=== PATIENT | female | born 1995 | race Caucasian/White ===

== ENCOUNTER → 2024-01-25 06:23 | Day surgery (SDC) | payer OTHER, SELFPAY | LOC: GI 06:23 | PROVIDERS: ATTENDING PHYSICIAN Internal Medicine Gastroenterology; FAMILY PHYSICIAN Internal Medicine | DX: K29.70 Gastritis, unspecified, without bleeding (principal); K22.89 Other specified disease of esophagus; K44.9 Diaphragmatic hernia without obstruction or gangrene; R63.0 Anorexia; R19.7 Diarrhea, unspecified | CPT/HCPCS: 43239; 88305; 88342 ==

== ENCOUNTER → 2024-04-03 07:34 | Outpatient (REF) | payer OTHER, SELFPAY | LOC: EMG 07:34 | PROVIDERS: ATTENDING PHYSICIAN Orthopaedic Surgery Hand Surgery; FAMILY PHYSICIAN Nurse Practitioner Family | DX: M79.642 Pain in left hand (principal); M79.641 Pain in right hand; R20.0 Anesthesia of skin | CPT/HCPCS: 95886; 95911 ==

== ENCOUNTER 2025-03-17 14:14 | Emergency (ER) | payer OTHER, SELFPAY ==
[2025-03-17 14:25] VITALS: BP 108/77
--- NOTE | 2025-03-17 14:54 | ED.GENMED ---
History of Present Illness
General
Chief Complaint: Overdose Intentional
Source: patient and ambulance crew
Time Seen by Provider: 03/17/25 14:26
History of Present Illness
History of Present Illness:
29-year-old female presents to the emergency room via ambulance from the police station. Patient went to the police station requesting help because she took 'a bunch' of BuSpar pills. The tablets are 10 mg. Patient denies this being a suicide
attempt. She states she took a because she was just very anxious. She took her typical dose of 3 (which is not an accurate description of her daily dose. She supposed take 1 3 times a day rather than 3 at 1 time) and it was not helping her so she
decided to take more. Upon my initial evaluation the patient states she took only 3 extra pills for total of '6 or 7'. However I counted the pills from her bottle. The bottle was filled in March 11. This would mean there should be 69 pills
remaining in the bottle. However there are 53 tablets remaining suggesting that the patient did take about 26 tablets today. Patient denies any coingestions. Patient now adamantly denies this being a suicide attempt. She is very frustrated that
she stuck here in the emergency room and wants to be discharged promptly.
Past History
Past History
ED Past Medical History: Psychiatric (A/D, ADHD on Lexapro and Adderall)
ED Past Surgical History: None
Social History
Tobacco: Non-smoker
Personal: Single
Living: with family
Employment: Student
Phy Exam
Physical Exam
Physical Exam:
General: Awake, Alert, Oriented X3. No acute distress.
Vitals: unremarkable
Head: Atraumatic
Eyes: Pupils equal, EOMI
Throat: Airway intact, no exudates
Neck: Trachea midline
Lungs: Clear and equal b/l
Heart: Regular rate, no murmurs
Neuro: Nonfocal
Skin: Warm, dry, no rash
Extremities: pulses equal b/l, no edema
Course
Orders/Labs/Results
Orders:
Orders
03/17/25 14:53
Electrocardiogram (*1) Urgent
Reason for Study: QTc Monitoring
EKG- Treatment ONCE
03/17/25 14:54
Test Result ONCE
03/17/25 16:12
Crisis Consult Urgent
Reason for Consult: overdose
03/17/25 17:48
Acetaminophen Urgent
Basic Metabolic Panel Urgent
Complete Blood Count/With Diff Urgent
HCG, Serum Qualitative Screen Urgent
Salicylate Urgent
Abnormal Lab Results
03/17/25
17:48
Chloride 110 H mmol/L
(98-107)
Glucose 101 H mg/dl
(70-99)
Salicylates < 1.0 L mg/dl
(2.0-20.0)
Acetaminophen < 10 L ug/ml
(10-30)
03/17/25 17:48
03/17/25 17:48
Vital Signs
Initial and Last Documented VS:
Initial Vital Signs
Temp Pulse Resp BP Pulse Ox
97.7 F 75 22 108/77 99
03/17/25 14:25 03/17/25 14:25 03/17/25 14:25 03/17/25 14:25 03/17/25 14:25
Last Documented Vital Signs
Temp Pulse Resp BP Pulse Ox
98.4 F 69 18 125/78 96
03/18/25 10:04 03/18/25 10:04 03/18/25 10:04 03/18/25 10:04 03/18/25 10:04
*Pulse Oximetry
SaO2: 99
Oxygen Mode of Delivery: Room air
Patient hypoxic: no
*Critical Care Note
Total Time (30-74mins, 75-104mins- exclusive of procedures): Not Applicable
ED Attending Note
-
Portions of this chart may have been created with voice recognition software.� Occasional wrong word or��sound alike� substitutions may have occurred due to the inherent limitations of voice recognition software.
Discharge Plan
Departure
Patient Disposition: [facility]
Patient Status:: 302
Discharge Problem:
Intentional overdose of buspirone
Prescriptions:
No Action
dextroamphetamine-amphetamine 10 MG tablet
10 mg PO DAILY
Patient Comments:
usually takes 5mg
escitalopram oxalate 10 MG tablet
10 mg PO DAILY
dicyclomine 10 mg capsule
10 mg PO BID Qty: 10 0RF
Referrals:
UNKNOWN,NO INTERVIEW [Family Provider]
Interventions
Interventions:
*Risk Screen - Suicide Last Done: 03/17/25 14:25
*General Assessment Last Done: 03/17/25 14:25
*Neglect/Abuse Screening Last Done: 03/17/25 14:25
*ED- Fall Risk Assessment Last Done: 03/17/25 14:25
*ED COVID-19 Vaccine History Last Done: 03/17/25 14:25
*Nursing Disposition Last Done: 03/18/25 10:32
ED- Cardiac Assessment Last Done: 03/17/25 15:16
ED- Neurological Assessment Last Done: 03/17/25 15:16
ED-Psychological Assessment Last Done: 03/17/25 15:16
ED- Pulmonary Assessment Last Done: 03/17/25 15:16
Discharge Date and Time
Discharge Date/Time: 03/18/25 10:49
Print Language: AUSTRALIAN
[2025-03-17 17:57] LABS: Hematocrit 40.1 % (37.0-47.0); Hemoglobin 13.6 g/dL (12.0-16.0); Mean Corp Hgb Conc. 33.9 g/dL (33.0-37.0); Mean Corpuscular Volume 87.7 fL (81.0-99.0); Nucleated Red Blood Cells % 0 %; Platelet Count 268 10^3/uL (130-400); Red Cell Dist. Width 12.4 % (11.5-14.5)
[2025-03-17 18:06] LABS: HCG, Serum Qualitative Screen Negative
[2025-03-17 18:21] LABS: Acetaminophen < 10 ug/ml (10-30); Blood Urea Nitrogen 7 mg/dl (7-17); Calcium 9.9 mg/dl (8.4-10.2); Carbon Dioxide 25 mmol/L (22-30); Chloride 110 mmol/L (98-107); Glucose 101 mg/dl (70-99); Potassium 4.1 mmol/L (3.5-5.1); Salicylate < 1.0 mg/dl (2.0-20.0); Sodium 140 mmol/L (135-145); eGFR > 60.00
[2025-03-17 19:43] VITALS: BP 120/71
[2025-03-18 10:04] VITALS: BP 125/78
== END 2025-03-18 10:49 ==
LOC: EMR 14:14
PROVIDERS: EMERGENCY PHYSICIAN Emergency Medicine
DX: T43.592A Poisoning by other antipsychotics and neuroleptics, intentional self-harm, initial encounter (principal); Y92.9 Unspecified place or not applicable; F90.9 Attention-deficit hyperactivity disorder, unspecified type; F41.8 Other specified anxiety disorders; Z88.1 Allergy status to other antibiotic agents; Z88.8 Allergy status to other drugs, medicaments and biological substances
CPT/HCPCS: 99283; 80048; 80143; 80179; 84703; 85025; 93005

== ENCOUNTER 2025-05-03 20:28 | Emergency (ER) | payer OTHER, SELFPAY ==
[2025-05-03 20:31] VITALS: BP 159/89
[2025-05-03 20:46] LABS: Urine Character Clear (Clear)
[2025-05-03 20:47] LABS: HCG, Urine Qualitative Screen Negative
[2025-05-03 20:55] LABS: Urine Red Blood Cell None Seen /HPF (0-2); Urine White Cell None Seen /HPF (0-5)
[2025-05-03 22:00] VITALS: BMI 20.3
[2025-05-03 22:05] VITALS: BP 129/83
--- NOTE | 2025-05-03 22:53 | ED.GENMED ---
History of Present Illness
General
Chief Complaint: Back Pain
Source: patient
Exam Limitations: none
Time Seen by Provider: 05/03/25 22:37
History of Present Illness
History of Present Illness:
See MDM
Past History
Past History
ED Past Medical History: Psychiatric (A/D, ADHD on Lexapro and Adderall)
ED Past Surgical History: None
Social History
Tobacco: Non-smoker
Personal: Single
Living: with family
Employment: Student
Phy Exam
Physical Exam
Physical Exam:
See MDM
Course
Orders/Labs/Results
Orders:
Orders
05/03/25 20:35
Test Result ONCE
05/03/25 20:39
HCG, Urine Qualitative Screen Urgent
Date Specimen was Collected: 05/03/25
Time Specimen was Collected: 20:35
Urinalysis Reflex To Culture Urgent
Date Specimen was Collected: 05/03/25
Time Specimen was Collected: 20:35
Urine Microscopic Reflex Cult Urgent
05/03/25 22:51
Cyclobenzaprine HCl [Flexeril] 10 mg PO NOW STA
Lumbar Spine, 2 or 3 View [CR Lumbar Spine 2 Or 3 Views] Urgent
Comment:
Reason For Exam: low back pain radiating to R leg
Abnormal Lab Results
05/03/25
20:39
Urine Albumin (Reflex) 1+ A
(Neg - Trace)
Vital Signs
Initial and Last Documented VS:
Initial Vital Signs
Temp Pulse Resp BP Pulse Ox
98.2 F 87 16 159/89 98
05/03/25 20:31 05/03/25 20:31 05/03/25 20:31 05/03/25 20:31 05/03/25 20:31
Last Documented Vital Signs
Temp Pulse Resp BP Pulse Ox
98 F 75 18 129/83 100
05/03/25 22:05 05/03/25 22:05 05/03/25 22:05 05/03/25 22:05 05/03/25 22:55
MDM/Problems Addressed
Differential Diagnosis Includes:
Note:
CHIEF COMPLAINT(S)
Severe lower back pain radiating to hips, thighs, and calves, accompanied by burning sensation and bladder issues.
HISTORY OF PRESENT ILLNESS
The patient is a 30-year-old female presenting with lower back pain that began approximately four months ago. The pain initially started in the lower back and gradually extended to the hips, thighs, and calves, with a burning sensation, particularly
increasing in the calves. The patient reports associated bladder issues, characterized by a sense of urgency and burning upon urination, without typical symptoms of a urinary tract infection. .
The patient underwent a cystoscopy and was scheduled for a bladder ultrasound; however, was disrupted by additional back-related events. Last week, the leg weakness increased, affecting the ability to bear weight on the legs, particularly the
calves. Of note, patient seen ambulating without difficulty. The pain worsens with walking and is positional, affecting both legs but predominantly the right one. The pain extends from the back to the front of the body. She reported the pain
radiating down from the lower back, and she described flare-ups depending on her position.
No recent trauma or fever was reported, and the patient denies significant recent physical activity such as heavy lifting.
Given her history and exam, will obtain lumbar x-ray and will start Flexeril. We did discuss possible outpatient MRI if symptoms persist.
PAST MEDICAL AND SURGICAL HISTORY
Discussion on previous interventions included a cystoscopy to evaluate bladder issues, and the patient was scheduled for a bladder ultrasound.
PHYSICAL EXAM
General: Alert, no acute distress.
Skin: Warm, dry.
Head: Normocephalic, atraumatic
Neck: Appears supple, trachea midline.
Eyes, Ears, Nose, Mouth, and Throat: Oral mucosa moist.
Cardiovascular: No signs of cyanosis
Respiratory: Respirations are non-labored.
Abdomen: Non-distended
Back: No significant tenderness palpated to lumbar region
Musculoskeletal: No deformities. No calf or thigh tenderness elicited. Distal legs neurovascularly intact. Negative straight leg raise. Patellar reflexes +2 bilaterally
Neurological: No focal neurological deficit observed.
Psychiatric: Cooperative, appropriate mood and affect.
PROBLEM LIST
Acute:
- Severe lower back pain with radiation to hips, thighs, and calves
- Bladder issues with urgency and intermittent incontinence
PLAN
1. Order an x-ray of the lumbar spine to evaluate structural abnormalities.
2. Initiate treatment with muscle relaxants to assess their effectiveness on the presenting symptoms.
3. Discuss potential referral for an MRI if indicated based on x-ray results and clinical progression.
4. Consider follow-up with a primary care provider or appropriate specialist for persistent symptoms.
5. Educate the patient regarding the nature of muscle relaxants, their potential effects, and manage expectations about symptom relief.
DIFFERENTIAL DIAGNOSIS
The Differential Diagnosis includes, in no particular order and is not limited to:
1. Sciatica
2. Lumbar radiculopathy
3. Spinal stenosis
4. Intervertebral disc herniation
SUMMARY OF ENCOUNTER
The patient presented to the emergency department with severe lower back pain radiating to the hips, thighs, and calves, along with associated bladder issues characterized by urgency and burning sensation. After performing a lumbar x-ray, the
results indicated no acute pathology, with disc spaces within normal limits and no signs of fracture or subluxation. During reassessment, the patient reported feeling somewhat better while ambulating.
PLAN
Prescribed short course of NSAIDs and muscle relaxants to manage symptoms. Discussed the importance of orthopedic follow-up for further evaluation, including the possibility of physical therapy or MRI depending on specialist recommendations. The
patient plans to consult her [facility] orthopedic office regarding the necessity of pursuing further treatment.
INDEPENDENT REVIEW OF LABS AND INTERPRETATION OF TESTS
My independent interpretation of the lumbar x-ray indicates no acute pathology, with disc spaces appearing normal and no evidence of fracture or subluxation.
PATIENT EDUCATION AND COUNSELING
Educated the patient regarding the prescribed medications, their potential effects, and the importance of following up with an special effects specialist. Advised on discussing the validity of physical therapy or MRI based on symptoms and expert
recommendations from her work environment.
FOLLOW-UP INSTRUCTIONS
Advised to follow up with an special effects specialist to discuss further management options such as physical therapy or an MRI. The patient was informed to relay her x-ray results and symptoms to her workplaces orthopedic office for further
consultation.
MEDICATION RECONCILIATION
Prescribed a short course of NSAIDs and muscle relaxants for symptom management.
MEDICAL DECISION MAKING
-Complexity of Data Reviewed: Chronic conditions affecting care [none explicitly mentioned]
Differential Diagnosis:
1. Sciatica
2. Lumbar radiculopathy
3. Spinal stenosis
4. Intervertebral disc herniation
5. Cauda equina syndrome
6. Bladder dysfunction secondary to neural irritation
7. Muscle spasm or strain
8. Facet joint syndrome
9. Sacroiliitis
10. Peripheral neuropathy
-Data:
Category 1
My independent interpretation of lumbar x-ray shows no acute pathology.
-Risk:
Prescription medication was prescribed, including NSAIDs and muscle relaxants for managing pain and associated symptoms.
DIAGNOSIS
1. M54.5 - Low back pain
2. G57.00 - Sciatica, unspecified side (suspected)
*Pulse Oximetry
SaO2: 100
Oxygen Mode of Delivery: Room air
Patient hypoxic: no
*Critical Care Note
Total Time (30-74mins, 75-104mins- exclusive of procedures): Not Applicable
ED Attending Note
-
Portions of this chart may have been created with voice recognition software.� Occasional wrong word or��sound alike� substitutions may have occurred due to the inherent limitations of voice recognition software.
Discharge Plan
Departure
Patient Disposition: Home (Routine Discharge)
Date of Disposition: 05/04/25
Time of Disposition: 00:38
Patient with high blood pressure during this ER visit?: No
Discharge Problem:
Low back pain
Instructions: Low Back Pain (DC)
Prescriptions:
New
diclofenac sodium 75 mg tablet,delayed release (DR/EC)
75 mg PO BID PRN (Reason: Pain) Qty: 20 0RF
metaxalone 800 mg tablet
800 mg PO TID PRN (Reason: muscle pain) Qty: 14 0RF
No Action
dextroamphetamine-amphetamine 10 MG tablet
10 mg PO DAILY
Patient Comments:
usually takes 5mg
escitalopram oxalate 10 MG tablet
10 mg PO DAILY
dicyclomine 10 mg capsule
10 mg PO BID Qty: 10 0RF
Referrals:
Emely Amaya CRNP [Family Provider]
Activity Restrictions/Additional Instructions:
Please return for any worsening symptoms.
You may return at any time if you have further concerns.
Please follow up with your doctor at the first available appointment, preferably this week. Please discuss case with orthopedics.
Thank you for choosing [facility].
Interventions
Interventions:
*Risk Screen - Suicide Last Done: 05/03/25 22:01
*General Assessment Last Done: 05/03/25 22:01
*Neglect/Abuse Screening Last Done: 05/03/25 22:01
*ED- Fall Risk Assessment Last Done: 05/03/25 22:01
*ED COVID-19 Vaccine History Last Done: 05/03/25 22:01
ED-Musculoskeletal Assessment Last Done: 05/03/25 22:01
Discharge Date and Time
Print Language: CZECH
[2025-05-03] MEDS: FLEXERIL 10 MG PO (23:10)
== END 2025-05-04 00:49 | disposition home or self-care (01) ==
LOC: EMR 20:28
PROVIDERS: Emergency Medicine; EMERGENCY PHYSICIAN Student in an Organized Health Care Education/Training Program; FAMILY PHYSICIAN Nurse Practitioner Family
DX: M54.50 Low back pain, unspecified (principal); F90.9 Attention-deficit hyperactivity disorder, unspecified type
CPT/HCPCS: 99284; 72100; 81003; 81015; 81025